=== PATIENT | female | born 1980 ===

== ENCOUNTER 2018-06-29 19:11 | Emergency (ER) | payer OTHER ==
[2018-06-29 19:19] VITALS: TEMP 97.8
--- NOTE | 2018-06-29 20:25 | C.PDOC ---
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 Pt reports she has an appointment with the dentist in July. Pt has no other associated sx or complaints at this time. Time Seen by Provider: 06/29/18 19:26 Chief Complaint (Nursing): Dental Pain History Per: Patient History/Exam Limitations: no limitations Onset/Duration Of Symptoms: Days (x8) Current Symptoms Are (Timing): Still Present Past Medical History Reviewed: Historical Data, Nursing Documentation, Vital Signs Vital Signs: Last Vital Signs Temp 97.8 F 06/29/18 19:16 Pulse 68 06/29/18 19:16 Resp 14 06/29/18 19:16 BP 121/89 06/29/18 19:16 Pulse Ox 100 06/29/18 19:16 Family History: States: No Known Family Hx - Social History Hx Alcohol Use: No Hx Substance Use: No - Immunization History Hx Tetanus Toxoid Vaccination: Yes Hx Influenza Vaccination: Yes Hx Pneumococcal Vaccination: No Review Of Systems Constitutional: Positive for: Other (left lower tooth pain ). Negative for: Fever, Chills Gastrointestinal: Negative for: Nausea, Vomiting Musculoskeletal: Negative for: Neck Pain, Arm Pain Neurological: Negative for: Weakness, Numbness Physical Exam - Physical Exam Appears: Non-toxic, No Acute Distress Skin: Warm, Dry Head: Normacephalic Oral Mucosa: Moist Teeth: Tender To Palpation (right lower mouth with no adjacent swelling to the gums), Other (filled molar in right lower mouth ) Throat: Normal, No Erythema Neck: Normal ROM, Supple Cardiovascular: Rhythm Regular Respiratory: Normal Breath Sounds Neurological/Psych: Oriented x3, Normal Speech, Normal Cognition ED Course And Treatment O2 Sat by Pulse Oximetry: 100 (RA) Pulse Ox Interpretation: Normal Medical Decision Making Medical Decision Making: Plans: -- POC urine -- tylenol -- toradol 2034 pt with no facial or gingival swelling; given analgesics in ed; advised to get sooner dental appt. continue mtorin and tylenol/ Disposition Counseled Patient/Family Regarding: Diagnosis, Need For Followup, Rx Given - Disposition Referrals: [facility] Keenan [Outside] Disposition: HOME/ ROUTINE Disposition Time: 20:36 Condition: GOOD Additional Instructions: [place] 600 mg de Motrin cada 6 horas. [place] Tylen Ol skyla se prescribe. Trate de cambiar la ferny dental antes. Pruebe sobre el mostrador de anbesol. Regrese a la alia de emergencias por cualquier dolor que empeore, hinchazn facial o cualquier otra inquietud. Take 600 mg Motrin every 6 hours. Take Tylen ol as prescreibed. Try to move dental appointment sooner. Try over the counter anbesol. Return to ER for any worsening pain, facial swelling or any other concerns. 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 - Scribe Statement The provider has reviewed the documentation as recorded by the Leo Christian Do All medical record entries made by the Scribbilly were at my direction and personally dictated by me. I have reviewed the chart and agree that the record accurately reflects my personal performance of the history, physical exam, medical decision making, and the department course for this patient. I have also personally directed, reviewed, and agree with the discharge instructions and disposition.
[2018-06-29 20:45] VITALS: BP 125/78; PULSE 85; RESP 16; O2SAT 98
== END 2018-06-29 20:45 | disposition home or self-care (01) ==
LOC: C.ER 19:11
DX: K08.89 Other specified disorders of teeth and supporting structures (principal)